=== PATIENT | female | born 1935 | race Caucasian/White ===

== ENCOUNTER → 2017-09-07 | Outpatient (CLI) | payer OTHER | LOC: HYPER 06:53 | DX: L03.115 Cellulitis of right lower limb (principal); L03.116 Cellulitis of left lower limb; I87.2 Venous insufficiency (chronic) (peripheral); I89.0 Lymphedema, not elsewhere classified; E66.01 Morbid (severe) obesity due to excess calories; Z68.25 Body mass index [BMI] 25.0-25.9, adult; Z87.891 Personal history of nicotine dependence ==

== ENCOUNTER → 2018-09-21 | Outpatient (CLI) | payer OTHER | LOC: HYPER 06:53 | DX: L97.822 Non-pressure chronic ulcer of other part of left lower leg with fat layer exposed (principal); L30.9 Dermatitis, unspecified; I87.2 Venous insufficiency (chronic) (peripheral); I89.0 Lymphedema, not elsewhere classified; R60.0 Localized edema; E66.01 Morbid (severe) obesity due to excess calories; Z87.891 Personal history of nicotine dependence ==

== ENCOUNTER → 2019-11-29 | Outpatient (CLI) | payer OTHER | LOC: HYPER 13:13 | PROVIDERS: ATTEND Emergency Medicine | DX: L97.521 Non-pressure chronic ulcer of other part of left foot limited to breakdown of skin (principal); R60.1 Generalized edema; I89.0 Lymphedema, not elsewhere classified; E66.01 Morbid (severe) obesity due to excess calories; I87.2 Venous insufficiency (chronic) (peripheral); Z68.42 Body mass index [BMI] 45.0-49.9, adult; Z87.891 Personal history of nicotine dependence; Z90.49 Acquired absence of other specified parts of digestive tract ==